=== PATIENT | male | born 1960 | race Caucasian/White ===

== ENCOUNTER 2019-09-17 07:14 | Day surgery (SDC) | payer BC ==
[~2019-09-17 07:14] MED LIST: Lactated Ringers 1,000 ML IV SCH; Lidocaine 1%/Sod Bicarbonate in NS 8.4% 1 ML Syringe IDERM PRN; Midazolam 1 MG/ML 2 ML SDV ONE; Propofol 200 MG/20 ML SDV ONE; Sodium Chloride 0.9% 10 ML Syringe FLUSH PRN
--- NOTE | 2019-09-17 07:37 | PCM.PREANE ---
Preanesthetic Assessment - Anesthesia/Transfusion/Family Hx Anesthesia History: Prior Anesthesia Without Reaction Family History of Anesthesia Reaction: No Transfusion History: No Prior Transfusion(s) - Review of Systems General: Other Pulmonary: No Symptoms Cardiovascular: No Symptoms, Other (HTN, EKG--SR) Gastrointestinal: Other (GERD, on meds and controlled) Neurological: No Symptoms Other: Reports: None - Physical Assessment NPO Status Date: 09/16/19 NPO Status Time: 03:30 (finished prep) Weight: 101.1 kg ASA Class: 2 Mental Status: Alert & Oriented x3 Airway Class: Mallampati = 2 Dentition: Reports: Normal Dentition Thyro-Mental Finger Breadths: 3 Mouth Opening Finger Breadths: 3 ROM/Head Extension: Full Lungs: Clear to Auscultation, Normal Respiratory Effort Cardiovascular: Regular Rate, Regular Rhythm - Allergies Allergies/Adverse Reactions: Allergies Allergy/AdvReac Type Severity Reaction Status Date / Time acetaminophen [From Percocet] Allergy Itching Verified 09/16/19 13:12 oxycodone [From Percocet] Allergy Itching Verified 09/16/19 13:12 - Blood Blood Available: No Product(s) Available: None - Acknowledgements Anesthesia Type Planned: MAC Pt an Appropriate Candidate for the Planned Anesthesia: Yes Alternatives and Risks of Anesthesia Discussed w Pt/Guardian: Yes Pt/Guardian Understands and Agrees with Anesthesia Plan: Yes PreAnesthesia Questionnaire HEENT History: Reports: Allergic Rhinitis, Cataract Cardiovascular History: Reports: Hypertension Respiratory History: Reports: None Gastrointestinal History: Reports: Hemorrhoids Genitourinary History: Reports: [employer]MENT [employer] History: Reports: None Musculoskeletal History: Reports: Other (See Below) Other Musculoskeletal History: carpal tunnel syndrome Neurological History: Reports: None Psychiatric History: Reports: None Endocrine/Metabolic History: Reports: None Hematologic History: Reports: None Immunologic History: Reports: None Oncologic (Cancer) History: Reports: Prostate Dermatologic History: Reports: None - Past Surgical History Head Surgeries/Procedures: Reports: None HEENT Surgical History: Reports: Adenoidectomy, Eye Surgery, Tonsillectomy Cardiovascular Surgical History: Reports: None Respiratory Surgical History: Reports: None GI Surgical History: Reports: Colonoscopy, Other (See Below) Other GI Surgeries/Procedures: hemorrhoidectomy Male Surgical History: Reports: Vasectomy Endocrine Surgical History: Reports: None Neurological Surgical History: Reports: None Musculoskeletal Surgical History: Reports: Carpal Tunnel Oncologic Surgical History: Reports: None Dermatological Surgical History: Reports: None - SUBSTANCE USE Smoking Status *Q: Never Smoker Days Per Week of Alcohol Use: 1 Number of Drinks Per Day: 1 Total Drinks Per Week: 1 Recreational Drug Use History: No - HOME MEDS Home Medications: Home Meds Tamsulosin [Flomax] 0.4 mg PO DAILY 06/20/18 [History] Zolpidem [Ambien] 10 mg PO BEDTIME PRN 06/20/18 [History] ClonazePAM [KlonoPIN] 2 mg PO DAILY PRN 09/16/19 [History] Valsartan/Hydrochlorothiazide [Valsartan-Hctz 160-12.5 mg Tab] 1 tab PO DAILY [History] amLODIPine Besylate [Norvasc] 5 mg PO DAILY 09/16/19 [History] - CURRENT (IN HOUSE) MEDS Current Meds: Current Medications Lactated Ringer's (Ringers, Lactated) 1,000 mls @ 125 mls/hr IV ASDIRECTED SANTOS Stop: 09/17/19 23:00 Lidocaine/Sodium Bicarbonate (Buffered Lidocaine 1% In Ns 8.4%) 0.25 ml IDERM ONETIME PRN PRN Reason: Prior to IV Start Stop: 09/17/19 18:00 Sodium Chloride (Saline Flush) 10 ml FLUSH ASDIRECTED PRN PRN Reason: Keep Vein Open Stop: 09/17/19 18:00 Discontinued Medications Midazolam HCl (Versed 1 Mg/Ml) Confirm Administered Dose 2 mg .ROUTE .STK-MED ONE Stop: 09/17/19 07:09 Propofol (Diprivan 20 Ml) Confirm Administered Dose 400 mg .ROUTE .STK-MED ONE Stop: 09/17/19 07:09
--- NOTE | 2019-09-17 08:48 | PCM.PRNOTE ---
- Free Text/Narrative Note: Date: 09/17/2019 Procedure: screening colonoscopy Endoscopist: Helio Lozoya MD Findings: Ileocecal valve and appendiceal orifice visualized. Prep was okay. Detailed Report: The patient was taken to the endoscopy suite and placed in left lateral decubitus position. Time out was performed and monitored anesthesia care was initiated. Minor external hemorrhoidal disease noted. Digital rectal exam was unremarkable; prostate did not feel abnormal. The lubricated colonoscope was then inserted and advanced all the way to the cecum. The ileocecal valve and appendiceal orifice were visualized. The prep was noted to be okay; there was significant particulate matter especially in the cecum and sigmoid colon. On slow withdrawal of the scope, mucosal surfaces were carefully inspected. A single subcentimeter polyp was identified in the ascending colon, this was biopsied with forceps and the base was fulgurated. A few scattered diverticula were noted. There was minor internal hemorrhoidal disease noted on retroflexion of the scope within the rectum. The patient tolerated the procedure well. Helio Lozoya MD General Surgery
--- NOTE | 2019-09-17 08:49 | PCM48HPAN ---
Post Anesthesia Note - EVALUATION WITHIN 48HRS OF ANESTHETIC Vital Signs in Normal Range: Yes Patient Participated in Evaluation: Yes Respiratory Function Stable: Yes Airway Patent: Yes Cardiovascular Function Stable: Yes Hydration Status Stable: Yes Pain Control Satisfactory: Yes Nausea and Vomiting Control Satisfactory: Yes Mental Status Recovered: Yes Vital Signs: Last Vital Signs Temp 36.9 C 09/17/19 07:20 Pulse 70 09/17/19 07:20 Resp 17 09/17/19 07:20 BP 144/96 H 09/17/19 07:20 Pulse Ox 95 09/17/19 07:20
== END 2019-09-17 09:26 | disposition home or self-care (01) ==
LOC: JD.SDS 07:14
PROVIDERS: ATTEND Surgery
DX: Z12.11 Encounter for screening for malignant neoplasm of colon (principal); D12.2 Benign neoplasm of ascending colon; K64.4 Residual hemorrhoidal skin tags; K57.30 Diverticulosis of large intestine without perforation or abscess without bleeding; K64.8 Other hemorrhoids; I10 Essential (primary) hypertension; Z98.890 Other specified postprocedural states; Z88.8 Allergy status to other drugs, medicaments and biological substances; Z79.899 Other long term (current) drug therapy
CPT/HCPCS: 00812; J2250; J2704; J7120

== ENCOUNTER 2022-02-14 22:12 | Emergency (ER) | payer BC ==
[2022-02-14] MEDS ORDERED: Sodium Chloride 0.9% 1,000 ML IV SCH (22:30)
[2022-02-14] MEDS ORDERED: Iopamidol 755 Mg/ML 100 ML Bottle IVPUSH ONE ×2 (22:58→23:00)
[2022-02-14 23:00] LABS: ESTIMATED GFR 75 mL/min (>60)
[2022-02-14] MEDS ORDERED: Sodium Chloride 0.9% 100 ML IV SCH (23:00)
[2022-02-15] MEDS ORDERED: Orphenadrine 100 MG Tab.ER PO STA (00:17)
== END 2022-02-15 03:18 | disposition home or self-care (01) ==
LOC: JD.ED 22:12
DX: M62.830 Muscle spasm of back (principal); I10 Essential (primary) hypertension; E66.9 Obesity, unspecified; Z68.30 Body mass index [BMI] 30.0-30.9, adult; Z79.899 Other long term (current) drug therapy; Z88.5 Allergy status to narcotic agent; Z88.8 Allergy status to other drugs, medicaments and biological substances; Z20.822 Contact with and (suspected) exposure to COVID-19
CPT/HCPCS: 36415; 71260; 74177; 80053; 81001; 83605; 83690; 83735; 84484; 85007; 85027; 85379; 85610; 85730; 87635; 93005; 96360; 96361; 99284; A9270; J7030; Q9967; 93010; U0002

== ENCOUNTER 2024-08-01 08:31 | Day surgery (SDC) | payer MEDICARE ==
[~2024-08-01 08:31] MED LIST changes: +HYDROmorphone 0.5 MG/0.5 ML Syringe IVPUSH PRN; -Lactated Ringers 1,000 ML IV SCH; -Lidocaine 1%/Sod Bicarbonate in NS 8.4% 1 ML Syringe IDERM PRN; -Midazolam 1 MG/ML 2 ML SDV ONE; +Ondansetron 4 MG/2 ML SDV IVPUSH PRN; -Propofol 200 MG/20 ML SDV ONE; +Sodium Chloride 0.9% 10 ML Syringe FLUSH SCH; +fentaNYL 100 MCG/2 ML SDV IVPUSH PRN
[2024-08-01] MEDS: Lactated Ringers 1,000 ML IV SCH (08:50)
[2024-08-01] MEDS ORDERED: Propofol 200 MG/20 ML SDV ONE (09:35)
[2024-08-01] MEDS ORDERED: Lidocaine 2% 5 ML SDV ONE (09:36)
[2024-08-01] MEDS: Lidocaine 1% with EPINEPHrine 1:100,000 20 ML MDV ONE (10:10)
== END 2024-08-01 11:05 | disposition home or self-care (01) ==
LOC: JD.SDS 08:31
PROVIDERS: ATTEND Surgery
DX: Z12.11 Encounter for screening for malignant neoplasm of colon (principal); L73.8 Other specified follicular disorders; I10 Essential (primary) hypertension; E78.00 Pure hypercholesterolemia, unspecified; K21.9 Gastro-esophageal reflux disease without esophagitis
CPT/HCPCS: 11104; 45378; J2704; J7120; 00811; 88305; J3490

== ENCOUNTER 2025-05-22 07:11 | Day surgery (SDC) | payer MEDICARE ==
[~2025-05-22 07:11] MED LIST changes: -HYDROmorphone 0.5 MG/0.5 ML Syringe IVPUSH PRN; +Lactated Ringers 1,000 ML IV SCH; -Ondansetron 4 MG/2 ML SDV IVPUSH PRN; -fentaNYL 100 MCG/2 ML SDV IVPUSH PRN
[2025-05-22] MEDS: Lactated Ringers 1,000 ML IV SCH (07:35)
[2025-05-22] MEDS ORDERED: Propofol 200 MG/20 ML SDV ONE ×2 (08:04)
[2025-05-22] MEDS ORDERED: Sodium Chloride 0.9% 10 ML Syringe FLUSH SCH (09:00)
== END 2025-05-22 09:15 | disposition home or self-care (01) ==
LOC: JD.SDS 07:11
PROVIDERS: ATTEND Surgery
DX: K31.89 Other diseases of stomach and duodenum (principal); K44.9 Diaphragmatic hernia without obstruction or gangrene; K21.9 Gastro-esophageal reflux disease without esophagitis; E78.00 Pure hypercholesterolemia, unspecified; Z88.8 Allergy status to other drugs, medicaments and biological substances; Z79.899 Other long term (current) drug therapy; Z12.5 Encounter for screening for malignant neoplasm of prostate; E87.1 Hypo-osmolality and hyponatremia; C61 Malignant neoplasm of prostate; G62.9 Polyneuropathy, unspecified
CPT/HCPCS: 36415; 43239; 80053; 80061; 85027; 88305; C9777; G0103; J2704; J7120; 00731; 43499